=== PATIENT | male | born 1955 | race Caucasian/White ===

== ENCOUNTER 2018-11-01 01:53 | Emergency (ER) | payer OTHER, MEDICARE ==
--- NOTE | 2018-11-01 01:55 | PDOC ---
History of Present Illness - General Chief Complaint: Pain, Acute Stated Complaint: RIGHT FLANK PAIN,KIDNEY STONES Time Seen by Provider: 11/01/18 01:55 History Source: Patient Exam Limitations: No Limitations - History of Present Illness Initial Comments: 11/01/18 02:05 This is a 63-year-old male comes in complaining of right flank pain times approximately 3 hours prior to arrival. Patient said pain was associated with some nausea and vomiting. Patient has history of kidney stones in the past and knows that he had a kidney stone up in his kidney on that same side. Patient denies any fevers or chills. Allergies: as per nursing notes Past Medical History: As per history of present illness Social history: Lives with family. No smoking. No alcohol. No illicit drugs. Surgical history: None General: No fevers or chills, no weakness, no weight loss HEENT: No change in vision. No sore throat,. No ear pain CardioVascular: no chest discomfort. No shortness of breath Respiratory:No cough, or wheezing. Gastrointestinal: no nausea, vomiting, diarrhea or constipation, No rectal bleeding Genitourinary: No dysuria, hematuria, or frequency, right flank pain as per history of present illness Musculoskeletal: No joint or muscle pain or swelling Neurologic: No headache, vertigo, dizziness or loss of consciousness Psychiatric: nor depression Skin: No rashes or easy bruising Endocrine: no increased thirst or abnormal weight change Allergic: no skin or latex allergy All other systems reviewed and normal GENERAL: The patient is awake, alert, and fully oriented, in no acute distress. HEAD: Normal with no signs of trauma. EYES: Pupils equal, round and reactive to light, extraocular movements intact, sclera anicteric, conjunctiva clear. EXTREMITIES:atraumatic, Normal range of motion, no edema. BACK/FLANK: There is some tenderness on palpation right flank, no abdominal or CVA tenderness. NEUROLOGICAL: Normal speech, normal gait. PSYCH: Normal mood, normal affect. SKIN: Warm, Dry, normal turgor, no rashes or lesions noted. Assessment and plan: This is a 63-year-old male with right flank pain. Pain most likely secondary to a kidney stone as patient has a kidney stone history. We will obtain a work up including CBC, comp UA, CAT scan abdomen and pelvis. 11/01/18 03:16 Patient feels much better post Toradol fluids. Patient secondary to. He improved. Stone just past the UPJ junction. Patient discharged home prescription sent to his pharmacy. Patient will follow-up with his urologist. Past History - Past Medical History Allergies/Adverse Reactions: Allergies Allergy/AdvReac Type Severity Reaction Status Date / Time No Known Allergies Allergy Verified 11/01/18 02:07 Home Medications: Ambulatory Orders Doxazosin Mesylate [Cardura] 1 mg PO DAILY 11/01/18 Hydrochlorothiazide [Hctz -] 12.5 mg PO DAILY 11/01/18 Ketorolac Tromethamine [Toradol] 10 mg PO Q6H #28 tablet 11/01/18 Losartan Potassium 50 mg PO DAILY 11/01/18 Ondansetron [Ondansetron Odt] 8 mg PO TID PRN #16 tab.rapdis 11/01/18 Rosuvastatin Calcium [Crestor] 20 mg PO DAILY 11/01/18 ED Treatment Course - LABORATORY CBC & Chemistry Diagram: 11/01/18 02:35 11/01/18 02:35 *DC/Admit/Observation/Transfer Diagnosis at time of Disposition: Kidney stone on right side - Discharge Dispostion Disposition: HOME Condition at time of disposition: Stable Decision to Admit order: No - Prescriptions Prescriptions: Ketorolac Tromethamine [Toradol] 10 mg PO Q6H #28 tablet Ondansetron [Ondansetron Odt] 8 mg PO TID PRN #16 tab.rapdis PRN Reason: Nausea - Referrals - Patient Instructions Additional Instructions: For the pain take Toradol as often as 3 times a day if needed. For nausea take Zofran 3 times a day if needed. Stay well-hydrated. Follow up with your urologist. Return to the emergency department immediately with ANY new, persistent or worsening symptoms. Continue any medications as previously prescribed by your physician. You should follow up with your primary doctor as soon as possible regarding today's emergency department visit. . Please make sure your doctor reviews the results of your emergency evaluation. Thank you for coming to the Emergency Department today for your care. It was a pleasure to see you today. Please note that your evaluation is INCOMPLETE until you follow-up with your doctor. - Post Discharge Activity
[2018-11-01] MEDS ORDERED: morphine CARPU-JECT 2 MG/1 ML DISP.SYRIN IVPUSH ONE (01:56)
[2018-11-01] MEDS ORDERED: SODIUM CHLORIDE 1,000 ML IV ONE (01:56)
[2018-11-01] MEDS ORDERED: KETOROLAC TROMETHAMINE 30 MG/1 ML VIAL IVPUSH ONE (01:56)
[2018-11-01] MEDS ORDERED: ONDANSETRON 4 MG/2 ML VIAL IVPB ONE (02:09)
[2018-11-01 02:40] VITALS: BP 153/80; PULSE 56; TEMP 98.2; BMI 30.3
[2018-11-01 02:42] LABS: BASO % 0.6 % (0-2.0); EOS % 1.8 % (0-4.5); HEMATOCRIT 42.7 % (35.4-49); HEMOGLOBIN 14.5 GM/dL (11.7-16.9); LYMPH % 20.3 % (8-40); MCH 31.2 pg (25.7-33.7); MEAN CELL VOLUME 91.6 fl (80-96); MEAN PLT VOLUME 9.7 fl (7.5-11.1); MONO % 7.9 % (3.8-10.2); NEUT % 69.4 % (42.8-82.8); PLATELET COUNT 197 K/MM3 (134-434); RBC 4.66 M/mm3 (4.00-5.60); RDW 13.9 % (11.9-15.9); WHITE BLOOD COUNT 7.4 K/mm3 (4.0-10.0)
[2018-11-01 02:46] LABS: EPI CELLS 0.4 /HPF (0-5/HPF); HYALINE CASTS 0 /lpf (0-8); URINE APPEARANCE CLEAR; URINE BACTERIA 1.9 /hpf (NEGATIVE); URINE BILIRUBIN NEGATIVE (NEGATIVE); URINE COLOR YELLOW; URINE GLUCOSE (UA) NEGATIVE (NEGATIVE); URINE KETONE NEGATIVE (NEGATIVE); URINE LEUK ESTERASE NEGATIVE (NEGATIVE); URINE NITRITE NEGATIVE (NEGATIVE); URINE PROTEIN NEGATIVE (NEGATIVE); URINE WBC 0 /hpf (0-5)
[2018-11-01 03:12] LABS: ALBUMIN 4.3 g/dl (3.4-5.0); CREATININE 0.9 mg/dL (0.55-1.3); POTASSIUM 4.4 mmol/L (3.5-5.1); TOT PROT 7.2 g/dl (6.4-8.2)
[2018-11-01 03:15] LABS: URINE RBC 180.1 /hpf (0-4); YEAST NEGATIVE (NEGATIVE)
== END 2018-11-01 03:20 | disposition home or self-care (01) ==
LOC: FER 01:53
PROC: 3E0333Z Introduction of Anti-inflammatory into Peripheral Vein, Percutaneous Approach (ICD-10-PCS; principal; 2018-11-01)
PROC: 3E033GC Introduction of Other Therapeutic Substance into Peripheral Vein, Percutaneous Approach (ICD-10-PCS; 2018-11-01)
PROC: 3E0337Z Introduction of Electrolytic and Water Balance Substance into Peripheral Vein, Percutaneous Approach (ICD-10-PCS; 2018-11-01)
DX: N20.0 Calculus of kidney (principal)
CPT/HCPCS: 36415; 74176-TC; 80053; 81003; 85025; 96361; 96374; 96375; 99282-25; J7030